=== PATIENT | male | born 1990 | race Caucasian/White ===

== ENCOUNTER 2024-10-20 22:25 | Emergency (ER) | payer OTHER, SELFPAY ==
[2024-10-20 22:30] VITALS: BP 115/66; PULSE 58; RESP 22; O2SAT 99; BMI 26.5
[2024-10-20 22:50] VITALS: PULSE 73; O2SAT 96
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
[2024-10-20 23:00] VITALS: PULSE 71; RESP 22; O2SAT 100
[2024-10-20] MEDS: HYDROMORPHONE 1 MG INJ 0.5 MG IV (23:02)
[2024-10-20 23:19] VITALS: BP 129/72; PULSE 69; RESP 12; O2SAT 98
[2024-10-20 23:23] LABS: Add Manual Diff / Slide Review NO; Basophils Absolute Auto 100 /uL (0-100); Basophils Percent Auto 0.4 % (0-2); Eosinophils Absolute Auto 400 /uL (0-450); Eosinophils Percent Auto 2.5 % (2-4); Hematocrit 41.8 % (41-53); Lymphocytes Absolute Auto 7100 /uL (1100-4500); Lymphocytes Percent Auto 49.5 % (25-40); Mean Corpuscular HGB Conc 33.5 % (30-36); Mean Corpuscular Hemoglobin 29.8 PG (26-34); Mean Corpuscular Volume 88.9 fL (80-100); Monocytes Absolute Auto 900 /uL (0-900); Neutrophils Absolute Auto 6000 /uL (1500-7000); Neutrophils Percent Auto 41.6 % (50-75); Platelet Count 425 X10^3/uL (150-400); Red Cell Distribution Width 13.3 % (11.6-14.8); White Blood Cell Count 14.4 X10^3/uL (4.5-11.0)
[2024-10-20] MEDS: HYDROMORPHONE 0.5 MG INJ IV (23:25)
[2024-10-20 23:29] LABS: INR 1.1 (0.9-1.3)
[2024-10-20 23:30] VITALS: BP 132/69; PULSE 73; RESP 19; TEMP 36.7; O2SAT 99
[2024-10-20 23:32] LABS: PTT Partial Thromboplastin Tim 31 SECONDS (25.1-36.5)
[2024-10-20 23:35] LABS: Albumin 5.1 g/dL (3.5-5.0); Albumin Globulin Ratio 1.7 (1.0-2.8); BUN Creatinine Ratio 19.2 (6-22); Blood Urea Nitrogen 24 mg/dL (9-20); Carbon Dioxide 26 mmol/L (22-32); Chloride 102 mmol/L (98-107); Estimated Glomerular Filt Rate > 60 mL/min (>60); HEMOLYSIS < 15 (0-50); Lipase 120 U/L (23-300); Potassium 4.1 mmol/L (3.4-5.1); Sodium 142 mmol/L (137-145); Total Protein 8.1 g/dL (6.3-8.2)
[2024-10-20 23:38] LABS: Alanine Aminotransferase 40 IU/L (<50); Alkaline Phosphatase 67 U/L (38-126); Aspartate Aminotransferase 41 IU/L (17-59); Bilirubin Total 0.6 mg/dL (0.2-1.3); Calcium 9.3 mg/dL (8.4-10.2); Ethanol (ETOH) < 10 mg/dL; Glucose 115 mg/dL (70-99); Lactate (Lactic Acid) 1.9 mmol/L (0.7-2.1)
[2024-10-20] MEDS: HYDROMORPHONE 1 MG INJ IV (23:50)
[2024-10-21 00:07] VITALS: PULSE 88; O2SAT 96
[2024-10-21 00:08] VITALS: BP 134/100; PULSE 85; RESP 20; O2SAT 96
[2024-10-21] MEDS: KETOROLAC 30 MG/ML VIAL 15 MG IV (00:11)
[2024-10-21] MEDS: KETAMINE 500 MG/5 ML INJ 50 MG IV (00:16)
[2024-10-21 00:31] VITALS: BP 160/79; PULSE 122; RESP 21; O2SAT 95
[2024-10-21] MEDS: diazePAM 10 MG/2 ML SYRINGE 5 MG IV ×2 (00:32→01:20)
[2024-10-21 01:00] VITALS: BP 133/65; PULSE 109; RESP 18; O2SAT 95
[2024-10-21 01:30] VITALS: BP 115/66; PULSE 110; RESP 14; O2SAT 93
[2024-10-21] MEDS: HYDROMORPHONE 1 MG INJ IV (02:04)
== END 2024-10-21 02:16 | disposition short-term general hospital (02) ==
PROVIDERS: Emergency Provider Emergency Medicine
DX: S22.41XA Multiple fractures of ribs, right side, initial encounter for closed fracture (principal); S42.031A Displaced fracture of lateral end of right clavicle, initial encounter for closed fracture; S27.331A Laceration of lung, unilateral, initial encounter; S42.101A Fracture of unspecified part of scapula, right shoulder, initial encounter for closed fracture; J93.83 Other pneumothorax; R07.9 Chest pain, unspecified; J94.2 Hemothorax; V29.99XA Rider (driver) (passenger) of other motorcycle injured in unspecified traffic accident, initial encounter
CPT/HCPCS: 70450; 71045; 71275; 72125; 74177; 80053; 80320; 82962; 83605; 83690; 85025; 85610; 85730; 86850; 86900; 86901; 96374; 96375; 96376; 99284; 99291; J1171; J1885; J3360; Q9967